=== PATIENT | male | born 1985 | race Caucasian/White ===

== ENCOUNTER 2019-06-17 08:35 | Emergency (ER) | payer MEDICAID ==
[~2019-06-17] VITALS: Ht 172.7 cm; Wt 87.5 kg
[2019-06-17 08:41] VITALS: Ht 172.7 cm; Wt 87.5 kg
[2019-06-17 08:57] LABS: microscopic required? NO
[2019-06-17 09:27] LABS: CARBON DIOXIDE 24.1 mmol/L (21-32); CHLORIDE SERUM 99 mmol/L (98-107); GFR1 > 60 mL/min; GLUCOSE SERUM 335 mg/dL (74-106); POTASSIUM SERUM 3.7 mmol/L (3.5-5.1); SODIUM SERUM 140 mmol/L (136-145)
[2019-06-17 09:31] LABS: ALKALINE PHOSPHATASE 143 U/L (46-116); ALT/SGPT 51 U/L (16-63); AST/SGOT 30 U/L (15-37); BILIRUBIN TOTAL 0.18 mg/dL (0.20-1.00); LIPASE 212 IU/L (73-393); TOTAL PROTEIN, SERUM 8.2 g/dL (6.4-8.2)
[2019-06-17 09:32] LABS: UA SPECIFIC GRAVITY 1.015 (1.005-1.035); urine erythrocyte NEGATIVE (NEGATIVE)
[2019-06-17 09:51] LABS: BASOPHIL % 0 % (0-2); PLATELET COUNT 442 x10^3mcL (130-400); RED CELL DISTRIBUTION WIDTH 21.5 % (11.5-14.5)
[2019-06-17 09:52] LABS: rbc morphology (normal/abnorm) ABNORMAL (NORMAL)
[2019-06-17 11:31] VITALS: BP 122/82
== END 2019-06-17 11:31 | disposition home or self-care (01) ==
LOC: ED 08:35
PROVIDERS: Emergency Medicine
DX: K57.30 Diverticulosis of large intestine without perforation or abscess without bleeding (principal); E11.65 Type 2 diabetes mellitus with hyperglycemia; R74.0 Nonspecific elevation of levels of transaminase and lactic acid dehydrogenase [LDH]; F10.129 Alcohol abuse with intoxication, unspecified; Y90.7 Blood alcohol level of 200-239 mg/100 ml
CPT/HCPCS: G0480; J1885; J2060; J2405